=== PATIENT | male | born 1980 | race Caucasian/White ===

== ENCOUNTER → 2016-06-11 | Outpatient (CLI) | payer MEDICARE, MEDICAID ==
[~2016-06-11] MED LIST: ALBU8.5H INH; ALPR1TAB7 PO; AMIT25TA9 PO; ARIP10TA15 PO; ASPI81TA2 PO; BENZ1TAB7 PO; FLUO40CA7 PO; IBUP200C62 PO; LISI10TA7 PO
--- NOTE | 2016-06-11 16:00 | DI ---
Indication: ITS.REASON: M79.671 RIGHT FOOT PAIN PROCEDURE: FOOT RIGHT 3 VIEWS: Encounter: Initial Comparison: None Findings: There is no acute fracture, dislocation or malalignment identified. Impression: No acute osseous abnormality. .
== END ==
LOC: IMA 15:27
PROVIDERS: ATTEND Registered Nurse
DX: M79.671 Pain in right foot (principal)

== ENCOUNTER → 2016-06-17 | Outpatient (CLI) | payer MEDICARE, MEDICAID ==
--- NOTE | 2016-06-18 09:26 | DI ---
Indication: ITS.REASON: M79.671 PAIN IN RIGHT FOOT PROCEDURE: MRI FOOT RIGHT W/O CONTRAST: Encounter: Initial Comparison: Right foot radiographs dated June 11, 2016 Technique: Multiplanar multisequence MR imaging of the right foot was performed without contrast. Findings: No acute fracture identified. Bone marrow signal intensity is normal. Achilles tendon is grossly intact as are the extensor tendons. No fluid collection or muscular edema appreciated the marker indicating the site of patient's maximal pain is seen beneath the flexor hallucis longus tendon. No definite evidence for tendon tear or tenosynovitis. The plantar fascia appears thickened with some increased T2 signal intensity measuring up to 8 mm in thickness. There is some increased signal intensity seen within the area of the Lisfranc ligament but no offset or dislocation. No bony changes in this region.. Impression: 1. Plantar fasciitis. 2. Possible partial tear of the Lisfranc ligament versus partial volume averaging artifact. .
== END ==
LOC: IMA 18:08
PROVIDERS: ATTEND Registered Nurse
DX: M72.2 Plantar fascial fibromatosis (principal); R93.7 Abnormal findings on diagnostic imaging of other parts of musculoskeletal system; M79.671 Pain in right foot